=== PATIENT | female | born 1950 | race Caucasian/White ===

== ENCOUNTER 2016-08-30 07:25 | Day surgery (SDC) | payer MEDICARE, OTHER ==
[~2016-08-30] VITALS: Ht 165.1 cm; Wt 91.2 kg
[~2016-08-30 07:25] MED LIST: ATEN50TA PO; DOCU-168 PO; LIDOCAINE 1% (10mg/ml) 2ml SDV INJ ONE; LR 1,000 ML IV SCH; OXYB5TAB10 PO
--- OUTSIDE RECORDS SUMMARY | 2016-08-30 07:29 | XMS REPORT | Referral Summary ---
Author Author [facility] [place] Organization [facility] [place], [facility] Address Unknown Phone Unavailable Care Team Providers Care Harvesting Contractor Name Role Phone Princess Peck Primary Care Physician [phone] Encounter Date(s): 08/05/15 - 08/05/15 [facility] [place], [place] [address] [address] [place] [id number] Discharge Diagnosis: Obesity Discharge Diagnosis: WILBERT (obstructive sleep apnea) Discharge Diagnosis: Chronic insomnia Discharge Disposition: 01-Home or Self Care Attending Physician: David Mcdermott MD Admitting Physician: David Mcdermott MD Referring Physician: Cheko Peck MD Vital Signs Most recent to 1 oldest [Reference Range]: Peripheral Pulse 63 bpm Rate [60-100 bpm] (08/05/15 1:11 PM) Blood Pressure 128/74 mmHg [90-140/60-90 mmHg] (08/05/15 1:11 PM) SpO2 95 % (08/05/15 1:11 PM) Problem List Condition Effective Dates Status Health Status Informant Gallbladder Active disease(Confirmed) Diverticulitis(Confi Resolved rmed) Hypertension(Confirm < 10/15/13 Resolved ed) IBS(Confirmed) Active Insomnia(Confirmed) Active Morbid Active patient obesity(Confirmed) Seasonal Active allergies(Confirmed) Sleep Active apnea(Confirmed) Allergies, Adverse Reactions, Alerts Substance Reaction Severity Status amoxicillin Unknown Active amoxicillin-clavulanate Unknown Active penicillin Unknown Active Medications atenolol 50 mg oral tablet 50 mg 1 tabs, Oral, Daily, # 30 tabs, 6 Refill(s), Pharmacy: [id number], 1 tabs Oral Daily Start Date: 03/09/15 Status: Ordered Melatonin 3 mg oral tablet 1 tabs, Oral, Bedtime (once a day), as needed for insomnia, # 60 tabs, 0 Refill( s) Start Date: 10/15/13 Status: Ordered oxybutynin 5 mg oral tablet See Instructions, TAKE 1 TABLET BY ORAL ROUTE 2 TIMES EVERY DAY, # 60 unknown unit, 1 Refill(s), eRx: [facility] [id number], TAKE 1 TABLET BY ORAL ROUTE 2 TIMES EVERY DAY Start Date: 05/09/15 Status: Ordered pantoprazole 40 mg oral delayed release tablet 40 mg 1 tabs, Oral, Daily, 0 Refill(s) Start Date: 05/13/15 Status: Ordered ranitidine 300 mg oral tablet 300 mg 1 tabs, Oral, Bedtime (once a day), # 30 tabs, 0 Refill(s), other reason (Rx) Start Date: 07/21/15 Status: Ordered traZODone 50 mg oral tablet See Instructions, take 1-2 tabs mg Oral every bedtime, 0 Refill(s) Start Date: 10/15/13 Status: Ordered Results No data available for this section Immunizations Vaccine Date Refusal Reason tetanus/diphth/pertuss (Tdap) adult/adol 10/22/08 influenza virus vaccine, inactivated 03/15/15 pneumococcal 13-valent conjugate vaccine 03/15/15 pneumococcal 23-polyvalent vaccine 09/25/11 tetanus-diphth toxoids (Td) adult/adol 11/22/98 zoster vaccine live 10/22/08 Procedures Procedure Date Related Diagnosis Body Site Colonoscopy 11/16/05 Sigmoidoscopy 01/23/00 section Cholecystectomy Hysterectomy Knee replacement Surgery - foot Surgery - thumb Tonsillectomy Social History Social History Type Response Smoking Status Former smoker Assessment and Plan No data available for this section
--- OUTSIDE RECORDS SUMMARY | 2016-08-30 07:29 | XMS REPORT | Referral Summary ---
Author Author [facility] Organization [facility] Address Unknown Phone Unavailable Care Team Providers Care Drawer In Jacquard Loom Name Role Phone Princess Peck Primary Care Physician [phone] Encounter Date(s): 01/25/16 - 01/25/16 [facility] [address] [place] [id number] Discharge Diagnosis: Restless leg syndrome Discharge Diagnosis: Overactive bladder Discharge Diagnosis: Other microscopic hematuria Discharge Diagnosis: Benign essential hypertension Discharge Diagnosis: Obstructive sleep apnea Discharge Diagnosis: H/O normocytic normochromic anemia Discharge Diagnosis: GERD (gastroesophageal reflux disease) Discharge Disposition: 01-Home or Self Care Attending Physician: Cheko Peck MD Admitting Physician: Cheko Peck MD Vital Signs Most recent to 1 oldest [Reference Range]: Temperature Tympanic 36.3 degC [36.6-38.1 degC] *LOW* (01/25/16 10:43 AM) Peripheral Pulse 85 bpm Rate [60-100 bpm] (01/25/16 10:43 AM) Blood Pressure 142/88 mmHg [90-140/60-90 mmHg] *HI* (01/25/16 10:43 AM) Problem List Condition Effective Dates Status Health Status Informant Benign essential Active hypertension(Confirm ed) Gallbladder Active disease(Confirmed) Diverticulitis(Confi Resolved rmed) GERD Active (gastroesophageal reflux disease)(Confirmed) Overactive Active bladder(Confirmed) Hypertension(Confirm < 10/15/13 Resolved ed) IBS(Confirmed) Active Insomnia(Confirmed) Active Morbid Active patient obesity(Confirmed) Seasonal Active allergies(Confirmed) Sleep Active apnea(Confirmed) Allergies, Adverse Reactions, Alerts Substance Reaction Severity Status amoxicillin Unknown Active amoxicillin-clavulanate Unknown Active penicillin Unknown Active Medications atenolol 50 mg oral tablet See Instructions, TAKE 1 TABLET BY MOUTH DAILY, # 30 tabs, 5 Refill(s), eRx: [facility] [id number], TAKE 1 TABLET BY MOUTH DAILY Start Date: 01/03/16 Status: Ordered Melatonin 3 mg oral tablet 1 tabs, Oral, Bedtime (once a day), as needed for insomnia, # 60 tabs, 0 Refill( s) Start Date: 10/15/13 Status: Ordered oxybutynin 5 mg oral tablet See Instructions, TAKE 1 TABLET BY ORAL ROUTE 2 TIMES EVERY DAY, # 60 unknown unit, 1 Refill(s), eRx: [id number], TAKE 1 TABLET BY ORAL ROUTE 2 TIMES EVERY DAY Start Date: 05/09/15 Status: Ordered rOPINIRole 0.25 mg oral tablet See Instructions, TAKE 1 TABLET BY MOUTH AT BEDTIME FOR RESTLESS LEGS, # 90 tabs , 1 Refill(s), Pharmacy: [id number], TAKE 1 TABLET BY MOUTH AT BEDTIME FOR RESTLESS LEGS Start Date: 01/25/16 Status: Ordered Results No data available for this section Immunizations Vaccine Date Refusal Reason tetanus/diphth/pertuss (Tdap) adult/adol 10/22/08 influenza virus vaccine, inactivated 01/25/16 influenza virus vaccine, inactivated 03/15/15 pneumococcal 13-valent conjugate vaccine 03/15/15 pneumococcal 23-polyvalent vaccine 09/25/11 tetanus-diphth toxoids (Td) adult/adol 11/22/98 zoster vaccine live 10/22/08 Procedures Procedure Date Related Diagnosis Body Site Colonoscopy 11/16/05 Sigmoidoscopy 01/23/00 section Cholecystectomy Hysterectomy Knee replacement Miscellaneous1 Surgery - foot Surgery - thumb Tonsillectomy 1Left total hip replacement, September, Social History Social History Type Response Smoking Status Former smoker Assessment and Plan Extracted from: Title: CRMMP Author: Cheko Peck MD Date: 01/25/16 Impression and Plan Diagnosis Benign essential hypertension (OEG56-SC I10, Discharge, Medical). GERD (gastroesophageal reflux disease) (TOJ69-VI K21.9, Discharge, Medical). H/O normocytic normochromic anemia (AHH44-DE Z86.2, Discharge, Medical). Need for vaccination (ALW35-UI Z23, Working, Medical). Obstructive sleep apnea (CJO62-UE G47.33, Discharge, Medical). Other microscopic hematuria (JMH55-EJ R31.2, Discharge, Medical). Overactive bladder (TYB64-CD N32.81, Discharge, Medical). Restless leg syndrome (HVA96-EO G25.81, Discharge, Medical).
--- OUTSIDE RECORDS SUMMARY | 2016-08-30 07:29 | XMS REPORT | Referral Summary ---
Author Author [facility] Organization [facility] Address Unknown Phone Unavailable Care Team Providers Care Computing Systems Mechanic Name Role Phone Princess Peck Primary Care Physician [phone] Encounter VC Date(s): 12/22/15 - 12/22/15 [facility] [address] [place] [address] Discharge Diagnosis: Restless leg syndrome Discharge Disposition: 01-Home or Self Care Attending Physician: Cheko Peck MD Admitting Physician: Cheko Peck MD Vital Signs Most recent to 1 oldest [Reference Range]: Temperature Tympanic 37 degC [36.6-38.1 degC] (12/22/15 2:48 PM) Peripheral Pulse 76 bpm Rate [60-100 bpm] (12/22/15 2:48 PM) Blood Pressure 140/78 mmHg [90-140/60-90 mmHg] (12/22/15 2:48 PM) Problem List Condition Effective Dates Status [...] TABLET BY MOUTH DAILY, # 30 tabs, 2 Refill(s), eRx: [id number], TAKE 1 TABLET BY MOUTH DAILY Start Date: 10/03/15 Status: Ordered Melatonin 3 mg oral tablet 1 tabs, Oral, Bedtime (once a day), as needed for insomnia, # 60 tabs, 0 Refill( s) Start Date: 10/15/13 Status: Ordered oxybutynin 5 mg oral tablet See Instructions, TAKE 1 TABLET BY ORAL ROUTE 2 TIMES EVERY DAY, # 60 unknown unit, 1 Refill(s), eRx: [facility] , TAKE 1 TABLET BY ORAL ROUTE 2 TIMES EVERY DAY Start Date: 05/09/15 Status: Ordered rOPINIRole 0.25 mg oral tablet See Instructions, TAKE 1 TABLET BY MOUTH AT BEDTIME FOR RESTLESS LEGS, # 90 tabs , 1 Refill(s), eRx: [facility] , TAKE 1 TABLET BY MOUTH AT BEDTIME FOR RESTLESS LEGS Start Date: 12/22/15 Status: Ordered Results Hematology Most recent to 1 oldest [Reference Range]: WBC [4.8-10.8 5.7 10*3/uL 10*3/uL] (12/22/15 3:30 PM) RBC [4.00-5.20] 3.76 *LOW* (12/22/15 3:30 PM) Hgb [12.0-16.0 10.9 gm/dL gm/dL] *LOW* (12/22/15 3:30 PM) Hct [37.0-47.0 %] 32.8 % *LOW* (12/22/15 3:30 PM) MCV [82.0-99.0 fL] 87.2 fL (12/22/15 3:30 PM) MCH [27.0-32.0 pg] 29.0 pg (12/22/15 3:30 PM) MCHC [32.0-36.0 33.2 gm/dL gm/dL] (12/22/15 3:30 PM) RDW [11.5-14.5 %] 12.8 % (12/22/15 3:30 PM) Platelet [150-400 314 10*3/uL 10*3/uL] (12/22/15 3:30 PM) MPV [8.8-14.8 fL] 10.0 fL (12/22/15 3:30 PM) Immature 0.2 % Granulocytes (12/22/15 3:30 PM) [0.0-1.0 %] Neutrophils [51-75 51 % %] (12/22/15 3:30 PM) Lymphocytes [20-46 38 % %] (12/22/15 3:30 PM) Monocytes [4-11 %] 8 % (12/22/15 3:30 PM) Eosinophils [0-4 %] 3 % (12/22/15 3:30 PM) Basophils [0-2 %] 0 % (12/22/15 3:30 PM) Neutro Absolute 2.91 10*3 [1.90-7.00 10*3] (12/22/15 3:30 PM) Lymph Absolute 2.16 10*3 [0.80-3.30 10*3] (12/22/15 3:30 PM) [place] Absolute 0.46 10*3 [0.30-1.00 10*3] (12/22/15 3:30 PM) Eos Absolute 0.17 10*3 [0.00-0.50 10*3] (12/22/15 3:30 PM) Baso Absolute 0.02 10*3 [0.00-0.20 10*3] (12/22/15 3:30 PM) Chemistry Most recent to 1 oldest [Reference Range]: Ferritin Lvl [5-204 117 ng/mL ng/mL] (12/22/15 3:30 PM) Immunizations Vaccine Date Refusal Reason tetanus/diphth/pertuss (Tdap) [...] smoker Assessment and Plan Extracted from: Title: Acute OV-RLS Author: hCeko Peck MD Date: 12/22/15 Impression and Plan Diagnosis Restless leg syndrome (CAH55-CP G25.81, Discharge, Medical). Orders Orders (Selected) Outpatient Orders Ordered CBC w/ Differential: Ferritin: Prescriptions Prescribed Requip 0.25 mg oral tablet: See Instructions, 1 tab at bedtime for restless legs , 30 tabs, 1 Refill(s).
--- OUTSIDE RECORDS SUMMARY | 2016-08-30 07:29 | XMS REPORT | Referral Summary ---
Author Author [facility] Organization [facility] Address Unknown Phone Unavailable Care Team Providers Care Business Services Director Name Role Phone Princess Peck Primary Care Physician [phone] Encounter VC Date(s): 05/13/15 - 05/13/15 [facility] Family [address] [place] [address] Discharge Disposition: 01-Home or Self Care Attending Physician: Lm Flower APRN Admitting Physician: Lm Flower APRN Vital Signs Most recent to 1 oldest [Reference Range]: Peripheral Pulse 64 bpm Rate [60-100 bpm] (05/13/15 11:07 AM) Respiratory Rate 18 br/min [14-20 br/min] (05/13/15 11:07 AM) Blood Pressure 138/88 mmHg [90-140/60-90 mmHg] (05/13/15 11:07 AM) SpO2 98 % (05/13/15 11:07 AM) Problem List Condition Effective Dates Status [...] Daily, # 30 tabs, 6 Refill(s), Pharmacy: [id number], 1 tabs Oral Daily Start Date: 03/09/15 Status: Ordered Cipro 500 mg oral tablet 500 mg 1 tabs, Oral, q12hr, X 14 days, # 28 tabs, 0 Refill(s), Pharmacy: [facility] #[id number], 1 tabs Oral q12hr,x14 days Start Date: 05/13/15 Stop Date: 05/27/15 Status: Ordered Melatonin 3 mg oral tablet 1 tabs, Oral, Bedtime (once a day), as needed for insomnia, # 60 tabs, 0 Refill( s) Start Date: 10/15/13 Status: Ordered moxifloxacin 400 mg oral tablet 400 mg 1 tabs, Oral, Daily, X 10 days, # 10 tabs, 0 Refill(s), Pharmacy: [facility] #[id number], 1 tabs Oral Daily,x10 days Start Date: 05/13/15 Stop Date: 05/23/15 Status: Ordered oxybutynin 5 mg oral tablet See Instructions, TAKE 1 TABLET BY ORAL ROUTE 2 TIMES EVERY DAY, # 60 unknown unit, 1 Refill(s), eRx: [id number], TAKE 1 TABLET BY ORAL ROUTE 2 TIMES EVERY DAY Start Date: 05/09/15 Status: Ordered pantoprazole 40 mg oral delayed release tablet 40 mg 1 tabs, Oral, Daily, 0 Refill(s) Start Date: 05/13/15 Status: Ordered traZODone 50 mg oral tablet See Instructions, take 1-2 tabs mg Oral every bedtime, 0 Refill(s) Start Date: 10/15/13 Status: Ordered Results Hematology Most recent to 1 oldest [Reference Range]: WBC [5.0-10.0 7.3 10*3/uL 10*3/uL] (05/13/15 12:00 PM) RBC [3.70-5.20] 4.09 (05/13/15 12:00 PM) Hgb [12.0-16.0 12.0 gm/dL gm/dL] (05/13/15 12:00 PM) Hct [37.0-47.0 %] 36.0 % *LOW* (05/13/15 12:00 PM) MCV [80.0-96.0 fL] 88.0 fL (05/13/15 12:00 PM) MCH [26.0-34.0 pg] 29.3 pg (05/13/15 12:00 PM) MCHC [32.0-36.0 33.3 gm/dL gm/dL] (05/13/15 12:00 PM) RDW [0.0-14.5 %] 13.4 % (05/13/15 12:00 PM) Platelet [150-400 292 10*3/uL 10*3/uL] (05/13/15 12:00 PM) MPV [8.8-14.8 fL] 9.3 fL (05/13/15 12:00 PM) Neutrophils [50-70 60 % %] (05/13/15 12:00 PM) Lymphocytes [20-40 30 % %] (05/13/15 12:00 PM) Monocytes [4-8 %] 8 % (05/13/15 12:00 PM) Eosinophils [0-6 %] 2 % (05/13/15 12:00 PM) Basophils [0-2 %] 0 % (05/13/15 12:00 PM) Neutro Absolute 4.38 10*3 [2.50-7.00 10*3] (05/13/15 12:00 PM) Lymph Absolute 2.18 10*3 [1.00-4.00 10*3] (05/13/15 12:00 PM) [place] Absolute 0.62 10*3 [0.20-0.80 10*3] (05/13/15 12:00 PM) Eos Absolute 0.13 10*3 [0.00-0.60 10*3] (05/13/15 12:00 PM) Baso Absolute 0.03 [0.00-0.30] (05/13/15 12:00 PM) Sed Rate [0-23] 36 *HI* (05/13/15 12:00 PM) Immunizations Vaccine Date Refusal Reason tetanus/diphth/pertuss [...]
--- OUTSIDE RECORDS SUMMARY | 2016-08-30 07:29 | XMS REPORT | Continuity of Care Document ---
Author Author [facility] Organization [facility] Address Unknown Phone Unavailable Allergies Active Description Code Type Severity Reaction Onset Reported/Identified Relationship to Patient Clinical Status Yes amoxicillin 3675 1 N/A N/A Yes Penicillins 476 3 N/A N/A Medications Problems Date Dx Coded Attending Type Code Diagnosis Diagnosed By 04/11/2015 W Z48.89 Encounter for other specified surgical aftercare 11/08/2015 W M25.552 Pain in left hip 11/15/2015 W M16.9 Osteoarthritis of hip, unspecified 11/28/2015 W G89.29 Other chronic pain 11/28/2015 W M17.12 Primary osteoarthritis of left knee 11/28/2015 W M25.562 Chronic pain of left knee Procedures Code Description [place] [address] TOTAL HIP ARTHROPLASTY 10/25/2015 36021 X-RAY EXAM HIP UNI 2-3 VIEWS 10/25/2015 31786 X-RAY EXAM KNEE 4 OR MORE 11/28/2015 81019 TOTAL KNEE ARTHROPLASTY 05/15/2016 Results Encounters ACCT No. Visit Date/Time Discharge Status Pt. Type Provider Facility Loc./Unit Complaint [id number] 07/13/2013 10:07:00 07/13/2013 23 :59:59 CLS Outpatient [id number] 06/24/2013 08:38:00 06/24/2013 23 :59:59 CLS Outpatient
--- OUTSIDE RECORDS SUMMARY | 2016-08-30 07:29 | XMS REPORT | Continuity of Care Document ---
Author Author Yann Childs MD Ambulatory Address [address] [place] [address] [place] [address] Phone Payers Payer name Insurance type Covered libertarian ID Authorization(s) Unknown Problems Condition Effective Dates (start - stop) Clinical Status Irritable Colon - *Chronic Edema - *Acute Insomnia, Other - *Chronic Hypertension, Benign - *Chronic Diverticulitis - *Acute Pre-op evaluation - *Acute Abdominal pain, left lower quadrant - *Acute Diverticulitis - *Acute Upper Respiratory Infection, Acute - *Acute Sleep apnea - *Chronic Gynecological Examination - *Chronic Diverticulitis - *Acute BENIGN HYPERTENSION - Urinary Tract Infection - *Acute Irritable bowel syndrome - *Chronic Family History Family Member Diagnosis Age At Onset Status Unknown Social History Social History Element Description Quantity alcohol Allergies, Adverse Reactions, Alerts Substance Reaction Severity Status AMOXICILLIN TRIHYDRATE Unknown Unknown POTASSIUM CLAVULANATE Unknown Unknown PENICILLINS Unknown Unknown Medications Medication Instructions Dosage Effective Dates (start - stop) Status dicyclomine 10 mg capsule take 1 capsule (10MG) by oral route 4 times every day as needed 10 MG - Active omeprazole 20 mg capsule,delayed release take 1 capsule (20MG) by oral route every day before a meal 20 MG - Active atenolol 50 mg tablet take 1 tablet (50MG) by oral route every day 50 MG - Active [place] 5 mg-325 mg tablet take 1 tablet by oral route every 6 hours as needed for pain 0 - Active oxybutynin chloride 5 mg tablet take 1 Tablet by Oral route 2 times every day 0 - Active trazodone 50 mg tablet take 1 - 2 by Oral route every bedtime 0 2013 - Active Immunizations Vaccine Date Status Comments Tdap (Boostrix ) completed - Completed reason: source unspecified Td (adult) completed - Completed reason: source unspecified pneumo (2 yrs or older) (PPV23) completed - Completed reason: source unspecified Zoster completed - Completed reason: source unspecified Results Test Name Date and Time Measure Units Reference Range Abnormal Flag Comments Unknown Vital Signs Date / Time: Height Weight Pulse Rate Blood Pressure Temperature /10:07:00 64.50 in 211.80 lbs 120/80 mm[Hg] 97.8 F Procedures Procedure Date Unknown Encounters Encounter Location Date Patient Visit [facility] Patient [facility] Patient [facility] Patient [facility] Patient [facility] Patient Visit [facility] Patient Visit [facility] Patient Visit [facility] Patient Visit [facility] Patient Visit [facility] Patient Visit [facility] Patient Visit [facility] Patient Visit [facility] Patient Visit [facility] Advance Directives Directive Effective Date Unknown
--- OUTSIDE RECORDS SUMMARY | 2016-08-30 07:29 | XMS REPORT | Summary of Care ---
Author Author Sandip Mccarthy September Organization Unknown Address [address] [place], [place] [id number] Phone Unavailable Care Team Providers Care Fiberglass Dowel Drawing Operator Name Role Phone Jose Oropeza M.D. Unavailable Unavailable Gaby Og PP Unavailable Unavailable Unavailable Functional Status Functional Status Health Issues* Name Dates Details Functional status health issues are not documented Status: Cognitive Status Health Issues* Name Dates Details Cognitive status health issues are not documented Status: Problems Name Dates Details Memory loss (780.93, R41.3) Status: Active Snoring (786.09, R06.83) Status: Active Eustachian tube dysfunction (381.81, H69.80) Status: Active Obstructive sleep apnea (327.23, G47.33) Status: Active Sleep-related hypoventilation due to medical condition (327.26, G47.36) Status: Active Esophageal reflux (530.81, K21.9) Status: Active Difficulty swallowing (787.20, R13.10) Status: Active Esophageal stenosis (530.3, K22.2) Status: Active Acute gastritis (535.00, K29.00) Status: Active Medications Name Dates Details Atenolol 50 MG Oral Tablet TAKE 1 TABLET DAILY. * Started 21-Jan-2009 ActiveTraZODone HCl - 50 MG Oral Tablet * Refills: 0 * Started 08-Sep-2013 ActiveROPINIRole HCl - 1 MG Oral Tablet * Refills: 0 * Started 08-Sep-2013 ActiveOxybutynin Chloride 5 MG Oral Tablet * Refills: 0 * Started 08-Sep-2013 ActiveSucralfate 1 GM Oral Tablet Crush 1 tablet, disolve in water to make slurry, drink before meals and every night before bed * Quantity: 12 Refills: 0 September Felicitsa.Mikey* Started 10-Sep-2013 ActivePantoprazole Sodium 40 MG Oral Tablet Delayed Release TAKE ONE TABLET BY MOUTH ONCE A DAY 30 MINUTES PRIOR TO MORNING MEAL * Quantity: 30 Refills: 11 September Shari* Started 10-Sep-2013 ActiveRanitidine HCl - 300 MG Oral Tablet TAKE ONE TABLET BY MOUTH EVERY NIGHT AT BEDTIME * Quantity: 90 Refills: 3 Emelia Oropeza M.D.* Started 10-Sep-2013 Active Allergies and Adverse Reactions Name Dates Details Amoxicillin TABS Status: Active Penicillins Status: Active Past Medical History Name Dates Details History of fatigue (V13.89, Z87.898) Status: Resolved History of food allergy (V15.05, Z91.018) Status: Resolved History of hypertension (V12.59, Z86.79) Status: Resolved History of insomnia (V13.89, Z87.898) Status: Resolved History of obesity (V13.89, Z87.898) Status: Resolved History of Obstructive sleep apnea (327.23, G47.33) Status: Resolved History of Restless legs syndrome (333.94, G25.81) Status: Resolved Procedures Procedure Dates Details History of Polysomnography History of Cholecystectomy History of Tonsillectomy History of Rotator Cuff Repair History of Knee Arthroscopy History of Section History of Duodenoscopy With Biopsy History of Upr GI Endosc W/ Balloon Dilation Of Esoph (Less Than 30 Mm) Procedures not documented Immunization Name Dates Details Immunizations not documented Family History Unknown Family Member* Name Dates Details Family history of Family Health Status Number Of Children Comments: Family History Status: Active Family history of Sleep disturbances (780.50, G47.9) Comments: Family History Status: Active Mother* Name Dates Details Family history of Emphysema Status: Active Sister* Name Dates Details Family history of Lung Cancer (V16.1) Status: Active Brother* Name Dates Details Family history of Emphysema Status: Active Social History Smoking Status* Unknown if ever smoked Vital Signs Date Test Result Details No Known Vitals to report Results Date Description Value Details Results not documented Plan of Care Planned Observations* Name Dates Details Planned Goals not documented Goal Instructions * Instructions not documented Encounters Appointment; Ranjana Suazo Encounter Diagnosis: Problem not documented On 08-Sep-2013 12:30 Appointment; Sandip September Encounter Diagnosis: Problem not documented On 08-Sep-2013 09:30 Appointment; Sandip September Encounter Diagnosis: Problem not documented On 14-Aug-2013 14:30
--- OUTSIDE RECORDS SUMMARY | 2016-08-30 07:29 | XMS REPORT | Referral Summary ---
Author Author [facility], Family Medicine Organization [facility] Address Unknown Phone Unavailable Care Team Providers Care Pairer Name Role Phone Princess Peck Primary Care Physician [phone] Encounter VC Date(s): 03/15/15 - 03/15/15 [facility], Family [address] [place] [address] Discharge Diagnosis: Benign essential hypertension Discharge Diagnosis: Right trigger finger Discharge Disposition: 01-Home or Self Care Attending Physician: Cheko Peck MD Admitting Physician: Cheko Peck MD Referring Physician: Román Sauceda MD Vital Signs Most recent to 1 oldest [Reference Range]: Temperature Tympanic 36.5 degC [36.6-38.1 degC] *LOW* (03/15/15 1:31 PM) Peripheral Pulse 66 bpm Rate [60-100 bpm] (03/15/15 1:31 PM) Blood Pressure 131/71 mmHg [90-140/60-90 mmHg] (03/15/15 1:31 PM) Problem List Condition Effective Dates Status [...] Daily, # 30 tabs, 6 Refill(s), Pharmacy: [id number], 1 tabs Oral Daily Start Date: 03/09/15 Status: Ordered Melatonin 3 mg oral tablet 1 tabs, Oral, Bedtime (once a day), as needed for insomnia, # 60 tabs, 0 Refill( s) Start Date: 10/15/13 Status: Ordered omeprazole 20 mg oral delayed release tablet 1 tabs, Oral, Daily, before a meal, 0 Refill(s) Start Date: 10/15/13 Status: Ordered oxybutynin 5 mg oral tablet See Instructions, TAKE 1 TABLET BY ORAL ROUTE 2 TIMES EVERY DAY, # 60 unknown unit, 2 Refill(s), eRx: [id number], TAKE 1 TABLET BY ORAL ROUTE 2 TIMES EVERY DAY Start Date: 01/10/15 Status: Ordered traZODone 50 mg oral tablet See Instructions, take 1-2 tabs mg Oral every bedtime, 0 Refill(s) Start Date: 10/15/13 Status: Ordered Results Hematology Most recent to 1 oldest [Reference Range]: WBC [4.8-10.8 7.9 10*3/uL 10*3/uL] (03/15/15 2:39 PM) RBC [4.00-5.20] 4.19 (03/15/15 2:39 PM) Hgb [12.0-16.0 12.2 gm/dL gm/dL] (03/15/15 2:39 PM) Hct [37.0-47.0 %] 36.6 % *LOW* (03/15/15 2:39 PM) MCV [82.0-99.0 fL] 87.4 fL (03/15/15 2:39 PM) MCH [27.0-32.0 pg] 29.1 pg (03/15/15 2:39 PM) MCHC [32.0-36.0 33.3 gm/dL gm/dL] (03/15/15 2:39 PM) RDW [11.5-14.5 %] 12.7 % (03/15/15 2:39 PM) Platelet [150-400 262 10*3/uL 10*3/uL] (03/15/15 2:39 PM) MPV [8.8-14.8 fL] 10.8 fL (03/15/15 2:39 PM) Immature 0.1 % Granulocytes (03/15/15 2:39 PM) [0.0-1.0 %] Neutrophils [51-75 63 % %] (03/15/15 2:39 PM) Lymphocytes [20-46 27 % %] (03/15/15 2:39 PM) Monocytes [4-11 %] 9 % (03/15/15 2:39 PM) Eosinophils [0-4 %] 1 % (03/15/15 2:39 PM) Basophils [0-2 %] 0 % (03/15/15 2:39 PM) Neutro Absolute 4.99 10*3 [1.90-7.00 10*3] (03/15/15 2:39 PM) Lymph Absolute 2.13 10*3 [0.80-3.30 10*3] (03/15/15 2:39 PM) Nuckolls Absolute 0.68 10*3 [0.30-1.00 10*3] (03/15/15 2:39 PM) Eos Absolute 0.10 10*3 [0.00-0.50 10*3] (03/15/15 2:39 PM) Baso Absolute 0.02 10*3 [0.00-0.20 10*3] (03/15/15 2:39 PM) Chemistry Most recent to 1 oldest [Reference Range]: Sodium Lvl [135-144 141 mEq/L mEq/L] (03/15/15 2:39 PM) Potassium Lvl 3.8 mEq/L [3.5-5.2 mEq/L] (03/15/15 2:39 PM) Chloride [99-111 107 mEq/L mEq/L] (03/15/15 2:39 PM) CO2 [22-31 mEq/L] 26 mEq/L (03/15/15 2:39 PM) AGAP [3-20] 8 (03/15/15 2:39 PM) BUN [10-20 mg/dL] 17 mg/dL (03/15/15 2:39 PM) Glucose Lvl [70-99 105 mg/dL mg/dL] *HI* (03/15/15 2:39 PM) Creatinine Lvl 0.92 mg/dL [0.57-1.11 mg/dL] (03/15/15 2:39 PM) eGFR [>60 mL/min] >60 mL/min 1 (03/15/15 2:39 PM) Calcium Lvl 9.4 mg/dL [8.9-10.5 mg/dL] (03/15/15 2:39 PM) 1Result Comment: Multiply eGFR results by 1.21 for race. Immunizations Vaccine Date Refusal Reason tetanus/diphth/pertuss (Tdap) [...] smoker Assessment and Plan Extracted from: Title: Preoperative evaluation Author: Cheko Peck MD Date: Assessment/Plan Benign essential hypertension Need for pneumococcal vaccine Pre-op exam Ordered: Basic Metabolic Panel CBC w/ Differential Right trigger finger Overall she seems to be doing well and is therefore cleared for surgery. Blood tests are still pending at this time. Influenza and Prevnar-13 vaccine is given today. See recommendations above. Follow-up with me when necessary. We will send a copy of this dictation and lab results to Dr. Sauceda.
--- OUTSIDE RECORDS SUMMARY | 2016-08-30 07:29 | XMS REPORT | Referral Summary ---
Author Author [facility], [facility] Medicine Organization [facility] Address Unknown Phone Unavailable Care Team Providers Care Microbiology Teacher Name Role Phone Princess Peck Primary Care Physician [phone] Encounter Date(s): 01/06/15 - 01/06/15 [facility], [address] [place] [address] Discharge Diagnosis: Insomnia Discharge Diagnosis: IBS Discharge Diagnosis: Seasonal allergies Discharge Diagnosis: Overactive bladder Discharge Diagnosis: Diverticulitis Discharge Diagnosis: Sleep apnea Discharge Diagnosis: Hypertension Discharge Diagnosis: GERD (gastroesophageal reflux disease) Discharge Disposition: 01-Home or Self Care Attending Physician: Cheko Peck MD Admitting Physician: Cheko Peck MD Vital Signs Most recent to 1 oldest [Reference Range]: Temperature Tympanic 36.7 degC [36.6-38.1 degC] (01/06/15 2:07 PM) Peripheral Pulse 74 bpm Rate [60-100 bpm] (01/06/15 2:07 PM) Blood Pressure 116/70 mmHg [90-140/60-90 mmHg] (01/06/15 2:07 PM) Problem List Condition Effective Dates Status [...] Daily, # 30 tabs, 6 Refill(s), Pharmacy: [facility] [id number], 1 tabs Oral Daily Start Date: 03/09/15 Status: Ordered Melatonin 3 mg oral tablet 1 tabs, Oral, Bedtime (once a day), as needed for insomnia, # 60 tabs, 0 Refill( s) Start Date: 10/15/13 Status: Ordered oxybutynin 5 mg oral tablet See Instructions, TAKE 1 TABLET BY ORAL ROUTE 2 TIMES EVERY DAY, # 60 unknown unit, 1 Refill(s), [facility]Rx: [id number], TAKE 1 TABLET BY ORAL ROUTE 2 [...] smoker Assessment and Plan Extracted from: Title: Office Visit Note Author: Cheko Peck MD Date: 01/06/15 Assessment/Plan Diverticulitis Clinically resolved. After discussion with the radiologist , I will recommend a noncontrast CT of the abdomen/pelvis. GERD (gastroesophageal reflux disease) Stable. Continue present care. Hypertension Stable. Continue present care. IBS Insomnia Overactive bladder After discussion she seems to be doing okay and we will plan to continueoxybutynin. Seasonal allergies Sleep apnea Referral to sleep medicinefor reevaluation. Follow-up 6 month/sooner as needed.
--- OUTSIDE RECORDS SUMMARY | 2016-08-30 07:29 | XMS REPORT | Referral Summary ---
Author Author [facility], Family Medicine Organization [facility] Address Unknown Phone Unavailable Care Team Providers Care Cosmetics And Toiletries Salesperson Name Role Phone Princess Peck Primary Care Physician [phone] Encounter VC Date(s): 10/15/14 - 10/15/14 [facility] Family [address] [place] [address] Discharge Diagnosis: Strep throat Discharge Diagnosis: Sore throat Discharge Disposition: 01-Home or Self Care Attending Physician: Sara Sinha APRN Admitting Physician: Sara Sinha APRN Vital Signs Most recent to 1 oldest [Reference Range]: Temperature Tympanic 36.7 degC [36.6-38.1 degC] (10/15/14 1:59 PM) Peripheral Pulse 72 bpm Rate [60-100 bpm] (10/15/14 1:59 PM) Respiratory Rate 17 br/min [14-20 br/min] (10/15/14 1:59 PM) Blood Pressure 128/82 mmHg [90-140/60-90 mmHg] (10/15/14 1:59 PM) Problem List Condition Effective Dates Status [...] Daily, # 30 tabs, 6 Refill(s), Pharmacy: [facility] [id number], 1 tabs Oral Daily Start Date: 03/09/15 [...] # 60 unknown unit, 2 Refill(s), eRx: [id number], TAKE 1 TABLET BY ORAL ROUTE 2 [...] smoker Assessment and Plan Extracted from: Title: Ambulatory Patient Education Author: Sara Sinha APRN Date : 10/15/14 Family Medicine Strep Throat Strep throat is an infection of the throat. It is caused by a germ. Strep throat spreads from person to person by coughing, sneezing, or close contact. HOME CARE Rinse your mouth (gargle ) with warm salt water (1 teaspoon salt in 1 cup of water). Do this 3 to 4 times per day or as needed for comfort. Family members with a sore throat or fever should see a doctor. Make sure everyone in your house washes their hands well. Do not share food, drinking cups, or personal items. Eat soft foods until your sore throat gets better. Drink enough water and fluids to keep your pee (urine ) clear or pale yellow. Rest. Stay home from school, daycare, or work until you have taken medicine for 24 hours. Only take medicine as told by your doctor. Take your medicine as told. Finish it even if you start to feel better. GET HELP RIGHT AWAY IF: You have new problems, such as throwing up (vomiting ) or bad headaches. You have a stiff or painful neck, chest pain, trouble breathing, or trouble swallowing. You have very bad throat pain, drooling, or changes in your voice. Your neck puffs up (swells ) or gets red and tender. You have a fever. You are very tired, your mouth is dry, or you are peeing less than normal. You cannot wake up completely. You get a rash, cough, or earache. You have green, yellow-brown, or bloody spit. Your pain does not get better with medicine. MAKE SURE YOU: Understand these instructions. Will watch your condition. Will get help right away if you are not doing well or get worse. Document Released: 10/01/2008 Document Revised: 07/07/2012 Document Reviewed: [facility] Patient Information 2014 [employer] [facility]. No follow up information was provided. Extracted from: Title: Office Visit Note Author: Sara Sinha APRN Date: 10/15/14 Assessment/Plan 1.Strep throat zpack, push fluids, rest. Sore throat
--- OUTSIDE RECORDS SUMMARY | 2016-08-30 07:30 | XMS REPORT | Referral Summary ---
Author Author [facility], [facility], [facility] Organization [facility], [facility] Address Unknown Phone Unavailable Care Team Providers Care Interactive Art Director Name Role Phone Princess Peck Primary Care Physician [phone] Encounter VC Date(s): 08/08/15 - 08/08/15 [facility], [facility], [facility] [address] [place] [address]- Discharge Disposition: 01-Home or Self Care Attending Physician: David Mcdermott MD Vital Signs No data available for this section Problem List Condition Effective Dates Status Health [...] Daily, # 30 tabs, 6 Refill(s), Pharmacy: [facility] [id number], 1 tabs Oral Daily Start Date: 03/09/15 Status: Ordered Melatonin 3 mg oral tablet 1 tabs, Oral, Bedtime (once a day), as needed for insomnia, # 60 tabs, 0 Refill( s) Start Date: 10/15/13 Status: Ordered oxybutynin 5 mg oral tablet See Instructions, TAKE 1 TABLET BY ORAL ROUTE 2 TIMES EVERY DAY, # 60 unknown unit, 1 Refill(s), eRx: [facility] [id number], TAKE 1 TABLET BY ORAL ROUTE 2 [...]
--- OUTSIDE RECORDS SUMMARY | 2016-08-30 07:30 | XMS REPORT | Referral Summary ---
Author Author [facility], Family Medicine Organization [facility] Address Unknown Phone Unavailable Care Team Providers Care Cloth Designer Name Role Phone Princess Peck Primary Care Physician [phone] Encounter VC Date(s): 12/02/14 - 12/02/14 [facility], Family [address] [place] [address] Discharge Diagnosis: Abdominal pain Discharge Disposition: 01-Home or Self Care Attending Physician: Cheko Peck MD Admitting Physician: Cheko Peck MD Vital Signs Most recent to 1 oldest [Reference Range]: Temperature Tympanic 36.3 degC [36.6-38.1 degC] *LOW* (12/02/14 4:31 PM) Peripheral Pulse 67 bpm Rate [60-100 bpm] (12/02/14 4:31 PM) Blood Pressure 118/71 mmHg [90-140/60-90 mmHg] (12/02/14 4:31 PM) Problem List Condition Effective Dates Status [...] Daily, # 30 tabs, 6 Refill(s), Pharmacy: [id number], 1 tabs Oral Daily Start Date: 03/09/15 Status: Ordered Melatonin 3 mg oral tablet 1 tabs, Oral, Bedtime (once a day), as needed for insomnia, # 60 tabs, 0 Refill( s) Start Date: 10/15/13 Status: Ordered oxybutynin 5 mg oral tablet See Instructions, TAKE 1 TABLET BY ORAL ROUTE 2 TIMES EVERY DAY, # 60 unknown unit, 1 Refill(s), eRx: [facility], TAKE 1 TABLET BY ORAL ROUTE 2 [...] to 1 oldest [Reference Range]: WBC [5.0-10.0 13.4 10*3/uL 10*3/uL] *HI* (12/02/14 4:54 PM) RBC [3.70-5.20 4.33 10*6/uL 10*6/uL] (12/02/14 4:54 PM) Hgb [12.0-16.0 12.6 gm/dL gm/dL] (12/02/14 4:54 PM) Hct [37.0-47.0 %] 37.5 % (12/02/14 4:54 PM) MCV [80.0-96.0 fL] 86.6 fL (12/02/14 4:54 PM) MCH [26.0-34.0 pg] 29.1 pg (12/02/14 4:54 PM) MCHC [32.0-36.0 33.6 gm/dL gm/dL] (12/02/14 4:54 PM) RDW [0.0-14.5 %] 13.1 % (12/02/14 4:54 PM) Platelet [150-400 287 10*3/uL 10*3/uL] (12/02/14 4:54 PM) MPV [8.8-14.8 fL] 9.3 fL (12/02/14 4:54 PM) Neutrophils [50-70 68 % %] (12/02/14 4:54 PM) Lymphocytes [20-40 21 % %] (12/02/14 4:54 PM) Monocytes [4-8 %] 10 % *HI* (12/02/14 4:54 PM) Eosinophils [0-6 %] 1 % (12/02/14 4:54 PM) Basophils [0-2 %] 0 % (12/02/14 4:54 PM) Neutro Absolute 9.06 10*3 [2.50-7.00 10*3] *HI* (12/02/14 4:54 PM) Lymph Absolute 2.87 10*3 [1.00-4.00 10*3] (12/02/14 4:54 PM) Mckenzie Absolute 1.36 10*3 [0.20-0.80 10*3] *HI* (12/02/14 4:54 PM) Eos Absolute 0.07 10*3 [0.00-0.60 10*3] (12/02/14 4:54 PM) Baso Absolute 0.03 10*3 [0.00-0.30 10*3] (12/02/14 4:54 PM) Urinalysis Most recent to 1 oldest [Reference Range]: UA Color Yellow (12/02/14 5:02 PM) UA Appear Sl Cloudy 1 (12/02/14 5:02 PM) UA pH [5.0-8.0] 5.5 (12/02/14 5:02 PM) UA Leuk Est Pos 2+ [Negative] *ABN* (12/02/14 5:02 PM) UA Nitrite Negative [Negative] (12/02/14 5:02 PM) UA Protein Pos 1+ [Negative] *ABN* (12/02/14 5:02 PM) UA Glucose Negative [Negative] (12/02/14 5:02 PM) UA Ketones Negative [Negative] (12/02/14 5:02 PM) UA Urobilinogen 0.2 mg/dL (12/02/14 5:02 PM) UA Bili [Negative] Positive 2 *ABN* (12/02/14 5:02 PM) UA Blood Pos 2+ *ABN* (12/02/14 5:02 PM) UA Spec Grav 1.015 [1.003-1.030] (12/02/14 5:02 PM) Type Clean Catch (12/02/14 5:02 PM) UA WBC [0-4] 10-20 *ABN* (12/02/14 5:02 PM) UA RBC [0-2] None seen (12/02/14 5:02 PM) Epithelial Cells 2-5 (12/02/14 5:02 PM) UA Bacteria Occasional *ABN* (12/02/14 5:02 PM) 1Result Comment: Urine specimen volume is 1_ ml. Microscopic performed on unspun specimen. 2Result Comment: Confirmation test unavailable due to shortage of reagent. Microbiology Reports TEST: Urine Culture STATUS: Auth (Verified) BODY SITE: SOURCE: Urine COLLECTED DATE/TIME: 12/02/14 5:02 PM Urine Culture Normal urogenital/skin lauren present Immunizations Vaccine Date Refusal Reason tetanus/diphth/pertuss (Tdap) [...] smoker Assessment and Plan Extracted from: Title: DOC-abdominal pain Author: Cheko Peck MD Date: 12/02/14 Assessment/Plan Abdominal pain Orders: ciprofloxacin, 500 mg 1 tabs, Oral, q12hr, X 10 days, # 20 tabs, 0 Refill(s), Pharmacy: [facility] [id number], 1 tabs Oral q12hr,x10 days metroNIDAZOLE, 500 mg 1 tabs, Oral, q8hr, X 10 days, # 30 tabs, 0 Refill(s), Pharmacy: [facility] [id number], 1 tabs Oral q8hr,x10 days Urine Culture Evaluation included CBC and UA. White blood cell count was 13,400 with zero bands, 68 neutrophils. Urinalysis had 10-20 WBCs per high-power field with occasional bacteria. 2+ blood was noted on the dipstick but no red blood cells seen on microscopic. I advised her that I think diverticulitis is the most likely etiology for this problem, but other considerations might include a urinary tract infection or even other problems such as an appendicitis. At this point she is not in acute distress and it was late enough in the day that I could not obtain a nonemergent CT scan. We will start empirically on treatment with Cipro plus metronidazole. I advised about adverse effects of these medications and to avoid alcohol. We will try to arrange a CT scan tomorrow. (She advises me that she has claustrophobia and we will need to use a open device.) I asked her to call in the morning to facilitate making arrangements for this scan.
--- OUTSIDE RECORDS SUMMARY | 2016-08-30 07:30 | XMS REPORT | Summary of Care ---
Author Author Jason Delatorre Unknown Address [address], [place] [id number] Phone Unavailable Care Team Providers Care House Sitter Name Role Phone Jose Oropeza M.D. Unavailable [...] Active Acute gastritis (535.00, K29.00) Status: Active Medication refill (V68.1, Z76.0) Status: Active Irritable bowel syndrome with constipation (564.1, K58.9) Status: Active Medications Name Dates Details Atenolol [...] before bed * Quantity: 12 Refills: 0 Emelia Oropeza M.D.* Started 10-Sep-2013 ActivePantoprazole Sodium 40 MG Oral Tablet Delayed Release TAKE ONE TABLET BY MOUTH ONCE A DAY 30 MINUTES PRIOR TO MORNING MEAL * Quantity: 30 Refills: September M.D.* Started 10-Sep-2013 ActiveRanitidine HCl - 300 MG Oral Tablet TAKE ONE TABLET BY MOUTH EVERY NIGHT AT BEDTIME * Quantity: 90 Refills: September M.D.* Started 10-Sep-2013 Active Allergies and Adverse Reactions Name Dates Details Amoxicillin TABS Status: Active Penicillins Status: Active Past Medical History Name Dates Details History of fatigue (V13.89, Z87.898) Status: Resolved History of food allergy (V15.05, Z91.018) Status: Resolved History of hypertension (V12.59, Z86.79) Status: Resolved History of insomnia (V13.89, Z87.898) Status: Resolved History of obesity (V13.89, Z86.39) Status: Resolved History of Obstructive sleep apnea [...] smoked Vital Signs Date Test Result Details 08-Sep-2015 11:27 BP Systolic 138 mm[Hg] Status: BP Diastolic 91 mm[Hg] Status: Heart Rate 62 /min Status: Respiration Rate 18 /min Status: Weight 204 lb Status: Body Mass Index Calculated 33.95 kg/m2 Status: Body Surface Area Calculated 1.99 m2 Status: Results Date Description Value Details Results not documented Plan of Care Planned Observations* Name Dates Details Planned Goals not documented Goal Planned Encounters* Appointment; Provider: Schedule Radiology On 07-Mar-2015 07:15 Instructions * Instructions not documented Encounters Appointment; Jason Clay Encounter Diagnosis: Problem not documented On 08-Sep-2015 11:15 Appointment; Ranjana Suazo Encounter Diagnosis: Problem not documented On 08-Sep-2013 12:30 Appointment; Emelia Oropeza Encounter Diagnosis: Problem not documented On 08-Sep-2013 09:30
--- OUTSIDE RECORDS SUMMARY | 2016-08-30 07:30 | XMS REPORT | Continuity of Care Document ---
Author Author Sara Sinha APRN Ambulatory Address [address] [place] [address] Phone Payers Payer name Insurance type Covered green party ID Authorization(s) Unknown Problems Condition Effective Dates (start - stop) Clinical Status Urinary Tract Infection - *Acute Irritable bowel syndrome - *Chronic Edema - *Acute Insomnia, Other - *Chronic Hypertension, Benign - *Chronic Diverticulitis - *Acute Irritable Colon - *Chronic Abdominal pain, left lower quadrant - *Acute Diverticulitis - *Acute Upper Respiratory Infection, Acute - *Acute Sleep apnea - *Chronic Gynecological Examination - *Chronic Diverticulitis - *Acute BENIGN HYPERTENSION - Family History Family Member Diagnosis Age At Onset Status Unknown Social History Social History Element Description Quantity alcohol Allergies, Adverse Reactions, Alerts Substance Reaction Severity Status AMOXICILLIN TRIHYDRATE Unknown Unknown POTASSIUM CLAVULANATE Unknown Unknown PENICILLINS Unknown Unknown Medications Medication Instructions Dosage Effective Dates (start - stop) Status Cipro 500 mg tablet take 1 tablet (500MG) by oral route 2 times every day for 10 days 500 MG - No Longer Active omeprazole 20 mg capsule,delayed release take 1 capsule (20MG) by oral route every day before a meal 20 MG - Active atenolol 50 mg tablet take 1 tablet (50MG) by oral route every day 50 MG - Active Jackson 5 mg-325 mg tablet take 1 tablet by oral route every 6 hours as needed for pain 0 - Active oxybutynin chloride 5 mg tablet take 1 Tablet by Oral route 2 times every day 0 - Active dicyclomine 10 mg capsule take 1 capsule (10MG) by oral route 4 times every day as needed 10 MG - Active Immunizations Vaccine Date Status Comments Tdap (Boostrix ) completed - Completed reason: source unspecified Td (adult) completed - Completed reason: source unspecified pneumo (2 yrs or older) (PPV23) completed - Completed reason: source unspecified Zoster completed - Completed reason: source unspecified Results Test Name Date and Time Measure Units Reference Range Abnormal Flag Comments Panel Description: CBC WBC 09:12:00 7.9 1000/cmm 5.0-10.0 RBC 09:12:00 4.33 mil/cmm 3.70-5.20 HGB 09:12:00 12.0 g/dL 12.0-16.0 HCT 09:12:00 36.3 % 37.0-47.0 L MCV 09:12:00 83.8 fL 80.0-96.0 MCH 09:12:00 27.7 pg 26.0-34.0 MCHC 09:12:00 33.1 g/dL 32.0-36.0 RDW 09:12:00 12.9 % 0.0-14.5 PLT 09:12:00 299 1000/cmm 150-400 SEG 09:12:00 59 % 50-70 LYMPH 09:12:00 31 % 20-40 MONO 09:12:00 7 % 4-8 EOSIN 09:12:00 3 % <6 BASO 09:12:00 1 % <2 Panel Description: CBC WBC 09:12:00 7.9 1000/cmm 5.0-10.0 RBC 09:12:00 4.33 mil/cmm 3.70-5.20 HGB 09:12:00 12.0 g/dL 12.0-16.0 HCT 09:12:00 36.3 % 37.0-47.0 L MCV 09:12:00 83.8 fL 80.0-96.0 MCH 09:12:00 27.7 pg 26.0-34.0 MCHC 09:12:00 33.1 g/dL 32.0-36.0 RDW 09:12:00 12.9 % 0.0-14.5 PLT 09:12:00 299 1000/cmm 150-400 SEG 09:12:00 59 % 50-70 LYMPH 09:12:00 31 % 20-40 MONO 09:12:00 7 % 4-8 EOSIN 09:12:00 3 % <6 BASO 09:12:00 1 % <2 Panel Description: Urinalysis with Reflex Microscopic Site. 09:18:00 Midstream Color 09:18:00 Straw Clarity 09:18:00 Cloudy Volume Centrifuged 09:18:00 12 mls Specific [place]-C 09:18:00 1.020 1.005-1.025 pH-C 09:18:00 5 5.0-8.0 Leukocytes-C 09:18:00 500/ul Glenn/uL Negative A Nitrites-C 09:18:00 neg Negative Protein-C 09:18:00 neg mg/dL Negative FB-Skcdyse-R 09:18:00 norm mg/dL Normal Ketones-C 09:18:00 neg mg/dL Negative Urobilinogen-C 09:18:00 norm mg/dL Normal Bilirubin-C 09:18:00 neg mg/dL Negative Blood-C 09:18:00 250/ul Tre/uL Negative A Panel Description: Urinalysis with Reflex Microscopic Site. 09:18:00 Midstream Color 09:18:00 Straw Clarity 09:18:00 Cloudy Volume Centrifuged 09:18:00 12 mls Specific [place]-C 09:18:00 1.020 1.005-1.025 pH-C 09:18:00 5 5.0-8.0 Leukocytes-C 09:18:00 500/ul Glenn/uL Negative A Nitrites-C 09:18:00 neg Negative Protein-C 09:18:00 neg mg/dL Negative JT-Ysetxhx-U 09:18:00 norm mg/dL Normal Ketones-C 09:18:00 neg mg/dL Negative Urobilinogen-C 09:18:00 norm mg/dL Normal Bilirubin-C 09:18:00 neg mg/dL Negative Blood-C 09:18:00 250/ul Tre/uL Negative A Panel Description: Urinalysis-Microscopic Site. 09:18:00 Midstream Squamous Epithelial Cells 09:18:00 20-50 /lpf 0-20 A WBC. 09:18:00 >50 /hpf 0-5 A WBC Clumping 09:18:00 Noted /hpf None seen A RBC-Total 09:18:00 10-20 /hpf 0-5 A RBC-Crenated 09:18:00 None Seen /hpf 0-5 RBC-Dysmorphic 09:18:00 None Seen /hpf 0-5 Bacteria 09:18:00 1+ /hpf None seen-1+ Amorphous 09:18:00 Trace /hpf Trace-4+ Panel Description: Urinalysis-Microscopic Site. 09:18:00 Midstream Squamous Epithelial Cells 09:18:00 20-50 /lpf 0-20 A WBC. 09:18:00 >50 /hpf 0-5 A WBC Clumping 09:18:00 Noted /hpf None seen A RBC-Total 09:18:00 10-20 /hpf 0-5 A RBC-Crenated 09:18:00 None Seen /hpf 0-5 RBC-Dysmorphic 09:18:00 None Seen /hpf 0-5 Bacteria 09:18:00 1+ /hpf None seen-1+ Amorphous 09:18:00 Trace /hpf Trace-4+ Panel Description: Culture If Indicated With Sensitivity Culture If Indicated With Sensitivity 09:18:00 Cult & Sens to Follow Panel Description: Culture If Indicated With Sensitivity Culture If Indicated With Sensitivity 09:18:00 Cult & Sens to Follow Panel Description: Urine Culture/Sensitivity-[facility] Urine Culture 09:18:00 Source: Urine Collected: 06/24/13 09:18 Site: MIDSTREAM Received : 06/24/13 12:47 Order#: [id number] is the Site? : MIDUrine Culture PRELIM 06/25/13 12:58KEY FOR RESULTS: * - NEW RESULT - RESULT WAS MODIFIED AFTER FINAL STATUS SETPerform at [facility] Reference Lab [address] [place], [place] [id number] Barrel Loader And Cleaner Baldemar Melendrez MD Panel Description: Urine Culture/Sensitivity-[facility] Urine Culture 09:18:00 Source: Urine Collected: 06/24/13 09:18 Site: [facility] Received : 06/24/13 12:47 Order#: [id number] is the Site? : MIDUrine Culture FINAL 06/26/13 06:42 Normal urogenital/skin lauren presentKEY FOR RESULTS: * - NEW RESULT - RESULT WAS MODIFIED AFTER FINAL STATUS SETPerform at [facility] Reference [facility] [address] [place] [id number] [employer]er Baldemar Melendrez MD Vital Signs Date / Time: Height Weight Pulse Rate Blood Pressure Temperature /08:39:00 64.50 in 207.20 lbs 78 /min 122/72 mm[Hg] 97.8 F Procedures Procedure Date Unknown Encounters Encounter Location Date Patient Visit [facility] Patient Visit [facility] Patient Visit [facility] Patient Visit [facility] Patient Visit [facility] Patient Visit [facility] Patient Visit [facility] Patient Visit [facility] Patient Visit [facility] Patient Visit [facility] Patient Visit Conversion Patient Visit [facility] Advance Directives Directive Effective Date Unknown
--- OUTSIDE RECORDS SUMMARY | 2016-08-30 07:30 | XMS REPORT | Summary of Care ---
Author Author Emelia Oropeza M.D. Organization Unknown Address [address] [place], [place] [id number] Phone Unavailable Care Team Providers Care Char House Supervisor Name Role Phone Jose Oropeza M.D. Unavailable [...] bed * Quantity: 12 Refills: 0 September Shari* Started 10-Sep-2013 ActivePantoprazole Sodium 40 MG Oral Tablet Delayed Release TAKE 1 TABLET BY MOUTH DAILY 30 MINUTES PROR TO MORNING MEAL * Quantity: 30 Refills: [...]
--- OUTSIDE RECORDS SUMMARY | 2016-08-30 07:30 | XMS REPORT | Referral Summary ---
Author Author [facility] Organization [facility] Address Unknown Phone Unavailable Care Team Providers Care Final Dressing Cutter Name Role Phone Princess Peck Primary Care Physician [phone] Encounter VC Date(s): 07/21/15 - 07/21/15 [facility] [address] [place] [address] Discharge Disposition: 01-Home or Self Care Attending Physician: Cheko Peck MD Admitting Physician: Cheko Peck MD Vital Signs Most recent to 1 oldest [Reference Range]: Temperature Tympanic 36.3 degC [36.6-38.1 degC] *LOW* (07/21/15 1:48 PM) Peripheral Pulse 68 bpm Rate [60-100 bpm] (07/21/15 1:48 PM) Blood Pressure 135/75 mmHg [90-140/60-90 mmHg] (07/21/15 1:48 PM) Problem List Condition Effective Dates Status [...] Daily, # 30 tabs, 6 Refill(s), Pharmacy: [facility] [id number], 1 tabs Oral Daily Start Date: 03/09/15 Status: Ordered Melatonin 3 mg oral tablet 1 tabs, Oral, Bedtime (once a day), as needed for insomnia, # 60 tabs, 0 Refill( s) Start Date: 10/15/13 Status: Ordered oxybutynin 5 mg oral tablet See Instructions, TAKE 1 TABLET BY ORAL ROUTE 2 TIMES EVERY DAY, # 60 unknown unit, 1 Refill(s), eRx: [facility] [id number], TAKE 1 TABLET BY ORAL ROUTE 2 [...]
[2016-08-30 07:40] VITALS: Ht 165.1 cm; Wt 91.2 kg
[2016-08-30 07:41] VITALS: BP 138/80; PULSE 60; RESP 15; TEMP 97.7; O2SAT 95
--- NOTE | 2016-08-30 08:37 | ANESPREOP ---
Anesthesia Record Date and Time DATE: 08/30/16 TIME: 08:35 Pre-Op Diagnosis dysphagia cancer screening Proposed Surgical Procedure EGD & COLONOSCOPY NPO since: 0500 Allergies: Coded Allergies: Penicillins (Verified Allergy, Mild, ITCHING, 08/30/16) Ht/Wt/BMI Height: 5 ' 5.00 " Weight: 91.200 kg BMI: 33.5 kg/m2 Vital Signs Date Time Temp Pulse Resp B/P Pulse Ox O2 Delivery O2 Flow Rate FiO2 08/30/16 07:41 97.7 60 15 138/80 95 Room Air Medications Inpatient Medications Current Medications Medications (Trade) Dose Ordered Sig/Arsenio Start Time Stop Time Status Last Admin Dose Admin Lactated Ringer's (Lactated Ringers) 1,000 ml @ 30 mls/hr Q24H 08/30/16 07:00 08/30/16 08:00 30 MLS/HR Atenolol (Atenolol) 50 Mg Tablet, 1 TAB PO DAILY, (Reported) Last Taken: on 08/30/16 0645 Docusate Sodium (Colace) 100 Mg Capsule, 1 CAP PO DAILY, (Reported) Last Taken: on 08/29/16 0800 Oxybutynin Chloride (Oxybutynin Chloride) 5 Mg Tablet, 1 TAB PO BID, (Reported) Last Taken: on 08/29/16 2100 Currently on Beta Didier: Yes Beta Didier Last Taken: ATENOLOL @ 0645 08/30/16 Medical/Surgical History Anesthesia PMH: Reports: *Hypertension, Arthritis (OA), Hepatitis (HEP A TEEN GOT TX), Reflux, Sleep Apnea (NO USE OF C-PAP), Denies: *Diabetes, Anesthesia Reactions (NO AIRWAY ISSUES-N&V), Blood Transfusion Reac, Cancer, Clotting Problems, Glaucoma, Malignant Hyperthermia, Renal Disease, Thyroid Disease Smoking Status: Never smoker Has pt. smoked today?: No Use Chewing Tobacco?: No Second Hand Exposure: No Substance Use Type: does not use Alcohol Intake: none HX of Last Menstrual Period: 1975 Past Surgical History Orthopedic Surgeries: Yes - KYLIE LAT KNEE SCOPES, BILAT TKR,LTHA,L RCR Abdominal Surgeries: Yes - LAP JEWEL Genitourinary Surgeries: Cardiac Surgeries: Endocrine Surgeries: Reproductive Surgeries: Yes - HYST, X2,MOLAR REMOVED Neurological Surgeries: Ear Surgeries: Nose Surgeries: Throat Surgeries: Yes - TONSILLECTOMY Other Surgeries: Yes - COLONOSCOPY,EGD Anesthesia Adverse Reactions: FOUND none Hx of Motion Sickness: No Pertinent Findings EKG Rhythm: Sinus Rhythm Physical Exam Respiratory: Lungs clear Cardiovascular: FOUND Regular rate, rhythm, FOUND No murmur Airway Assessment Mallampati Score: III TMD: 3 Fingerbreadths Neck Extension: Good Teeth: Chipped Teeth/Crowns Overall Assessment: May Be Diff Intubation ASA: 2 Plan Anesthesia Plan: TIVA Discussion Discussed risks/options/alternatives of anesthesia and questions answered. Patient consents. Nursing pain assessment noted. Present: Spouse Attestation Statement Prior to the delivery of any anesthetic medication, I examined the patient, developed the plan, obtained the patient's consent and discussed the risk and benefits of the procedure with the patient/guardian. ALHAJI HANNON CRNA August 30, 2016 08:37
[2016-08-30] MEDS ORDERED: LIDOCAINE VISCOUS 2% Oral Soln 15ml UD ONE (10:10)
[2016-08-30 10:44] VITALS: BP 136/64; PULSE 62; RESP 16; TEMP 97.1; O2SAT 97
[2016-08-30 10:55] VITALS: BP 99/54; PULSE 66; RESP 20; O2SAT 92
[2016-08-30 11:10] VITALS: BP 123/64; PULSE 62; RESP 23; O2SAT 94
[2016-08-30 11:25] VITALS: BP 129/70; PULSE 58; RESP 21; O2SAT 97
[2016-08-30 11:35] VITALS: BP 139/74; PULSE 58; RESP 18; O2SAT 97
--- NOTE | 2016-08-30 19:36 | OPNOTEF ---
DATE OF SERVICE 08/30/2016 SURGEON David Nobles MD PREOPERATIVE DIAGNOSIS Personal history for recurrent dysphagia, colorectal cancer surveillance. POSTOPERATIVE DIAGNOSES Personal history for recurrent dysphagia, colorectal cancer surveillance, Schatzki's ring, sigmoid diverticulosis. PROCEDURE Esophagogastroduodenoscopy with circumferential biopsies from distal esophagus via cold biopsy technique, sequential balloon dilatation of distal esophagus to 54-Maori, colonoscopy. ANESTHESIA TIVA INDICATIONS Mrs. Sharp is a 66-year-old female who presents today to [facility] to undergo an EGD and a colonoscopy as a result of her personal history for recurrent dysphagia as well as to serve as a portion of her overall colorectal cancer surveillance. For completeness please refer to notes included in the patient's chart. FINDINGS Upon upper endoscopy the esophagus, stomach and duodenum within normal limits with the exception the patient was found to have a small Schatzki's ring. This area was biopsied via cold biopsy technique and dilated up to 54-Maori without incident. Otherwise, the esophagus, stomach and duodenum within normal limits. Upon colonoscopy the patient was found have a moderate number of diverticula within the sigmoid colon region. There was, however, no evidence for angiodysplastic lesions, polyps or fabiano malignancies. DESCRIPTION OF PROCEDURE After informed consent was obtained the patient was brought to the endoscopy suite and placed upon the table in left lateral decubitus position. The patient subsequently underwent total intravenous anesthesia by the nurse needle punch machine operator helper at my request. Formal time-out was then completed. Next, an Olympus gastroscope was inserted into the oral hypopharynx and subsequently into the esophagus under direct visualization. Gastroscope was advanced under direct visualization of the lumen at all times to the distal esophagus. Distally, one could see a small web-like ring/Schatzki's ring. The scope was able to be advanced past this location and into the stomach without difficulty. The scope was continued to be advanced through the stomach, pylorus, duodenal bulb and into the second portion of the duodenum. The scope was slowly withdrawn. First and second portions of the duodenum were within normal limits. Scope was drawn back to the prepyloric region and antrum. Again, no mucosal abnormalities were noted. J-maneuver was then performed. Cardia and fundus were within normal limits. Endoscopically, there was no evidence for hiatal hernia. Scope was allowed to straighten and was slowly withdrawn and the remaining corpus of the stomach was well visualized and again without noted abnormalities. Scope was drawn back to the level of the diaphragm. As stated above, there was an apparent Schatzki's ring present at this location. Several biopsies were obtained from the distal esophagus via cold biopsy technique. Next, the scope was withdrawn back up into the cervical esophagus. No additional abnormalities were noted. The scope was then readvanced back to the squamocolumnar junction at the site of the Schatzki's ring. An endoscopic dilating balloon was then placed at this location and sequentially dilated up to a 54-Fr. This did result in some dilatation of the distal esophagus. There was, however, no evidence for perforation or tear of the mucosa. The balloon was left inflated and withdrawn up into the cricopharyngeal region without difficulty. The balloon was deflated as it was withdrawn through the patient's oral hypopharynx. Next, attention was directed towards performing a colonoscopy. First, a digital rectal exam was performed. Normal sphincter tone. No rectal masses were appreciated. An Olympus colonoscope was inserted into the anus and advanced through the lumen of the colon under direct visualization at all times until the cecum was ascertained. Triangulation of the tenia coli, ileocecal valve and appendiceal lumen were all visualized. The scope was slowly withdrawn, maintaining visualization of the lumen at all times. As stated above, there was no evidence for angiodysplastic lesions, polyps or fabiano malignancies. The patient was found to have a moderate number of diverticula within the sigmoid colon region. The colonoscope was continued to be withdrawn until it was brought forth back to the rectal vault. J-maneuver was performed. No worrisome perianal pathology was noted. Scope was allowed to straighten and was withdrawn through the anal verge. Patient tolerated the procedure without difficulty and was sent back to the preop area in stable condition. From a colorectal cancer surveillance standpoint, the patient will not need to undergo a repeat colonoscopy until 10 years from now. Will await the biopsies from her EGD and proceed accordingly with further recommendations thereafter. [facility]
== END 2016-08-30 12:04 | disposition home or self-care (01) ==
LOC: SCU 07:25
PROVIDERS: ATTEND Surgery
DX: Z12.11 Encounter for screening for malignant neoplasm of colon (principal); K57.30 Diverticulosis of large intestine without perforation or abscess without bleeding; R13.10 Dysphagia, unspecified; K22.2 Esophageal obstruction; K21.9 Gastro-esophageal reflux disease without esophagitis; I10 Essential (primary) hypertension; N32.81 Overactive bladder; Z79.899 Other long term (current) drug therapy; Z88.0 Allergy status to penicillin; Z88.1 Allergy status to other antibiotic agents; Z90.49 Acquired absence of other specified parts of digestive tract; Z90.710 Acquired absence of both cervix and uterus
CPT/HCPCS: 43239; 43249; 88305; G0121; J7120